=== PATIENT | female | born 1950 | race Caucasian/White ===

== ENCOUNTER 2022-01-17 05:40 | Inpatient (IN) | payer MEDICARE, BC ==
[2022-01-11 11:55] LABS: BASOPHILS # (AUTO) 0.1 X10'3 (0-0.2); BASOPHILS % (AUTO) 0.4 % (0-1); EOSINOPHILS % (AUTO) 0.2 % (0-6); LYMPHOCYTES # (AUTO) 2.6 X10'3 (1.1-4.8); LYMPHOCYTES % (AUTO) 17.9 % (21-51); MEAN CORPUSCULAR HEMOGLOBIN 32.7 PG (27.0-31.0); MEAN CORPUSCULAR HGB CONC 33.9 g/dL (33.0-36.5); MEAN CORPUSCULAR VOLUME 96.4 FL (78-98); MEAN PLATELET VOLUME 7.6 FL (7.4-10.4); MONOCYTES # (AUTO) 0.7 X10'3 (0-0.9); NEUTROPHILS % (AUTO) 76.5 % (42-75); PRE OP HEMATOCRIT 46.5 % (35.0-45.0); PRE OP HEMOGLOBIN 15.8 g/dL (12.0-16.0); PRE OP PLATELET COUNT 398 X10'3 (140-440); RED BLOOD COUNT 4.82 X10'6 (4.20-5.60); RED CELL DISTRIBUTION WIDTH 12.6 % (11.5-14.5)
[2022-01-11 12:23] LABS: ALBUMIN 4.2 G/DL (3.4-5.0); ALKALINE PHOSPHATASE 72 IU/L (46-116); BLOOD UREA NITROGEN 18 MG/DL (7-18); BUN/CREATININE RATIO 16.8 (6.6-38.0); CHLORIDE 103 MMOL/L (99-107); CREATININE 1.07 MG/DL (0.40-0.90); PRE OP ALT 27 U/L (30-65); PRE OP ANION GAP 13 (8-16); PRE OP AST 21 U/L (10-37); PRE OP BILIRUB, TOTAL 0.4 MG/DL (0.0-1.0); PRE OP GLUCOSE 116 MG/DL (70-104); PRE OP POTASSIUM 3.6 MMOL/L (3.4-5.1); PRE OP SODIUM 139 MMOL/L (135-145); TOTAL CARBON DIOXIDE 23.2 MMOL/L (24-32); TOTAL PROTEIN 8.4 G/DL (6.4-8.2); eGFR 51 ML/MIN
[2022-01-17] VITALS (21 sets, daily range): BP systolic 95–153; BP diastolic 42–102
[~2022-01-17] VITALS: Ht 162.6 cm; Wt 71.2 kg
[~2022-01-17 05:40] MED LIST: ATOR20TA66 PO; HYDR12.55 PO; LEVO112T52 PO; LISI40TA13 PO; RALO60TA13 PO; VENL225T3 PO; acetaminophen 325mg tablet PO ONE; ceFAZolin inj. 2,000 MG in dextrose 5%-water 100 ML IV ONE; celeCOXIB 100mg capsule PO ONE; famotidine 20mg tablet PO ONE; gabapentin 300mg capsule PO ONE; metoclopramide 5 mg/ml inj IV ONE; oxyCODONE SR 10mg (sust. release) tab -2 tabs (20mg) PO ONE; ringers solution, lacted 1,000 ML IV SCH; vancomycin/NS 1 GM in NS 250 ML IV ONE
--- NOTE | 2022-01-17 05:50 | NUR ---
PT PREPPED FOR SURGERY, LEFT HIP AREA PREPPED BY [employer]. BILATERAL LEGS ARE WARM AND DRY, NO BRUISES OR SKIN INJURIES. SENSATION IS INTACT BILATERALLY. PT IS ABLE TO MOVE AND WALK ON BOTH LEGS, BILATERAL PEDAL PULSES ARE PRESENT. PT DID USE THE HIBACLES SOAP TO SHOWER FOR 5 DAYS PRIOR TO SURGERY, WITH THE LAST TIME THIS MORNING. PT READ THE INFORMATION PACKET, STATES SHE HAS EXPERIENCE WITH SURGERIES BECAUSE OF HER PARENTS, SO SHE DID NOT WATCH THE VIDEO ONLINE. INCENTIVE SPIROMETRY TEACHING PERFORMED. PT WAS ABLE TO RETURN DEMONSTRATE. PT WAS NOT GIVEN ANY OINTMENT TO USE IN NOSE BY PHYSICIAN.
[2022-01-17] MEDS ORDERED: tranexamic acid inj. 1,000 MG in normal saline IV soln 100ML IV ONE (06:00)
[2022-01-17] MEDS ORDERED: naloxone 0.4 mg/ml inj IV PRN (06:40)
[2022-01-17] MEDS ORDERED: HYDROmorphone inj. 0.5 MG/0.5 ML DISP.SYRIN IV PRN (06:40)
[2022-01-17] MEDS ORDERED: bisacodyl 10mg suppository rectal RC PRN (06:40)
[2022-01-17] MEDS ORDERED: diphenhydrAMINE 25mg capsule PO PRN ×2 (06:40)
[2022-01-17] MEDS ORDERED: magnesium hydroxide 30ml (MOM) UD suspension PO PRN (06:40)
[2022-01-17] MEDS ORDERED: acetaminophen 325mg tablet PO PRN (06:40)
[2022-01-17] MEDS ORDERED: ondansetron/PF 4mg/2ml inj IV PRN ×2 (06:40→08:05)
[2022-01-17] MEDS ORDERED: HYDROmorphone 1 mg/ml syringe IV PRN (06:40)
[2022-01-17] MEDS ORDERED: epiNEPHrine 1 mg/ml inj ONE (06:43)
[2022-01-17] MEDS ORDERED: ketorolac trometh. 30mg/ml inj. ONE (06:43)
[2022-01-17] MEDS ORDERED: BUPIVAcaine/PF 5 mg/ml 10ml ONE (06:44)
[2022-01-17] MEDS ORDERED: cloNIDine hcl/PF 100mcg/ml inj ONE (06:44)
[2022-01-17] MEDS ORDERED: vancomycin 1,000mg inj ONE (06:44)
[2022-01-17] MEDS ORDERED: ROPIVAcaine 0.5% (5mg/ml) 30ml vial ONE (06:51)
[2022-01-17] MEDS ORDERED: MIDAZolam 1 MG/ML 5ML VIAL ONE (07:09)
[2022-01-17] MEDS ORDERED: fentaNYL/PF 50MCG/1 ML 2ML syringe ONE (07:09)
[2022-01-17] MEDS ORDERED: raloxifene 60mg tablet PO SCH (08:00)
[2022-01-17] MEDS ORDERED: morphine 2 MG/ML inj. syringe IV PRN (08:05)
[2022-01-17] MEDS ORDERED: HYDROmorphone/PF 0.2 MG/ML SYRINGE IV PRN ×2 (08:05)
[2022-01-17] MEDS ORDERED: ringers solution, lacted 1,000 ML IV SCH (08:05)
[2022-01-17] MEDS ORDERED: propofol inj 20 ML IV ONE (08:33)
[2022-01-17] MEDS ORDERED: ePHEDrine 50MG/ML INJ. ONE (08:33)
[2022-01-17] MEDS ORDERED: phenylephrine 10mg/ml inj. ONE (08:33)
[2022-01-17] MEDS ORDERED: diphenhydrAMINE 50 mg/ml inj ONE (08:33)
--- NOTE | 2022-01-17 08:45 | NUR ---
Received from OR via HOSPITAL BED, accompanied by Anesthesiologist DR VELEZ and report given by Anesthesiolgist. PT IS AWAKE, ALERT AND ANSWERING QUESTIONS APPROPRIATELY. PT PLACED ON BEDSIDE MONITOR, VSS. PT IS ON RA AND TOLERATING WELL WITH O2 SAT >96%. PT HAS 20G PIV TO LEFT HAND WITH LR INFUSING ORDERED. PT HAS MYA DRSG TO LEFT LATERAL HIP THAT IS TURNED ON, AND IS CDI. PT HAS LEG IMMOBILIZER TO LEFT LEG AND PT IS ABLE TO WIGGLE TOES ON BILAT FEET. STRONG PALPABLE DORSALIS PEDIS PULSES PRESENT. PT DENIES PAIN AT THIS TIME. WILL CONTINUE TO MONITOR.
--- NOTE | 2022-01-17 11:01 | NUR ---
Patient in room PAS IN 900. I have received report from Antonia in recovery and had the opportunity to ask questions and assume patient care.
--- NOTE | 2022-01-17 11:05 | NUR ---
PATIENT HAS MET ALL CRITERIA FOR TRANSFER TO THE ORTHO FLOOR. VSS. DRESSINGS INTACT. BED LOW, CALL LIGHT PRESENT AND 2 RAILS UP. RN PRESENT TO ACCEPT CARE OF PATIENT AND REPORT HAS BEEN CALLED TO CHARISSA SNELL. ALL QUESTIONS ANSWERED TO ACCEPTING RN.
[2022-01-17] MEDS: potassium cl 20mEq in 1/2 NS 1,000 ML IV SCH ×3 (11:28→22:40)
[2022-01-17] MEDS: atorvastatin 20mg tablet PO SCH (11:28)
[2022-01-17] MEDS: aspirin 325mg tablet PO SCH (11:29)
[2022-01-17] MEDS: HYDROcodone/acetaminophen 10/325mg tab PO PRN ×3 (11:29→20:30)
[2022-01-17] MEDS: ascorbic acid 500mg tablet PO SCH ×2 (11:29→20:29)
[2022-01-17] MEDS ORDERED: TRANEXAMIC ACID IV ONE (12:00)
[2022-01-17] MEDS ORDERED: NORMAL SALINE IV ONE (12:00)
--- NOTE | 2022-01-17 14:00 | NUR ---
Unable to complete post-op VS documentation. VS machine removed from pt/room during program. No communication with nurse.
[2022-01-17] MEDS ORDERED: vancomycin/NS 1 GM ADD-VANTAGE 250 ML IV SCH (16:00)
[2022-01-17] MEDS: ceFAZolin/D5W- 1GM premix 50 ML IV SCH (16:18)
--- NOTE | 2022-01-17 18:23 | NUR ---
Problems reprioritized. Patient report given, questions answered & plan of care reviewed with Marlen.
[2022-01-17] MEDS: gabapentin 300mg capsule PO SCH (20:29)
[2022-01-17] MEDS ORDERED: sennosides 8.6mg tablet PO SCH (21:00)
[2022-01-18] MEDS: ceFAZolin/D5W- 1GM premix 50 ML IV SCH (01:12)
[2022-01-18] MEDS: HYDROcodone/acetaminophen 10/325mg tab PO PRN ×2 (02:00→07:44)
[2022-01-18 06:00] VITALS: BP 130/81
--- NOTE | 2022-01-18 06:33 | NUR ---
Patient in room ORTHO 4013. I have received report from Marlen and had the opportunity to ask questions and assume patient care.
[2022-01-18] MEDS: potassium cl 20mEq in 1/2 NS 1,000 ML IV SCH (06:40)
--- NOTE | 2022-01-18 06:52 | NUR ---
Patient in room ORTHO 4013A. I have received report from Marlen SNELL and had the opportunity to ask questions and assume patient care.
[2022-01-18 07:16] LABS: BASOPHILS % (AUTO) 0.5 % (0-1); EOSINOPHILS # (AUTO) 0.1 X10'3 (0-0.9); EOSINOPHILS % (AUTO) 1.4 % (0-6); HEMATOCRIT 35.9 % (35.0-45.0); HEMOGLOBIN 12.3 g/dl (12.0-16.0); LYMPHOCYTES # (AUTO) 2.4 X10'3 (1.1-4.8); LYMPHOCYTES % (AUTO) 22.3 % (21-51); MEAN CORPUSCULAR HEMOGLOBIN 33.1 PG (27.0-31.0); MEAN CORPUSCULAR HGB CONC 34.4 g/dL (33.0-36.5); MEAN CORPUSCULAR VOLUME 96.2 FL (78-98); MEAN PLATELET VOLUME 7.9 FL (7.4-10.4); MONOCYTES % (AUTO) 9.2 % (2-12); NEUTROPHILS # (AUTO) 7.1 X10'3 (1.8-7.7); NEUTROPHILS % (AUTO) 66.6 % (42-75); PLATELET COUNT 233 X10'3 (140-440); RED BLOOD COUNT 3.73 X10'6 (4.20-5.60); RED CELL DISTRIBUTION WIDTH 12.6 % (11.5-14.5); WHITE BLOOD COUNT 10.6 X10'3 (4.5-11.0)
[2022-01-18 07:30] VITALS: BP_SYST 143
[2022-01-18] MEDS: atorvastatin 20mg tablet PO SCH (07:30)
[2022-01-18] MEDS: gabapentin 300mg capsule PO SCH (07:31)
[2022-01-18] MEDS: ascorbic acid 500mg tablet PO SCH (07:31)
[2022-01-18] MEDS: aspirin 325mg tablet PO SCH (07:34)
[2022-01-18 07:40] LABS: ANION GAP 8 (8-16); CHLORIDE 109 MMOL/L (99-107); SODIUM 142 MMOL/L (135-145); TOTAL CARBON DIOXIDE 25.2 MMOL/L (24-32)
--- NOTE | 2022-01-18 07:40 | NUR ---
Pt. 4013A IV discontinued, cannula intact. no complaints of pain or swelling. Pt tolerated well .
--- NOTE | 2022-01-18 07:42 | NUR ---
Pt s/p L hip arthroplasty this admit per EMR. Written High protein diet ed w/ RD contact info placed in pt chart Addendum: 01/18/22 at [address] Amended: Links added.
[2022-01-18] MEDS ORDERED: raloxifene 60mg tablet PO SCH (07:47)
[2022-01-18] MEDS ORDERED: multivitamins, therapeutics tablet PO SCH (08:00)
[2022-01-18] MEDS ORDERED: levoTHYROXINE 112mcg tablet PO SCH (08:00)
[2022-01-18] MEDS ORDERED: HYDROchlorothiazide 12.5mg capsule PO SCH (08:00)
[2022-01-18] MEDS ORDERED: venlafaxine XR 75mg capsule (Q24H) PO SCH (08:00)
[2022-01-18] MEDS ORDERED: lisinopril 20mg tablet PO SCH (08:00)
--- NOTE | 2022-01-18 10:25 | NUR ---
Pt. 1187B discharged home, wheeled down in wheel chair to personal vehicle accompanied spouse. DC instructions given, patient verbalized understanding an was able to ask questions. Left will all personal belongings.
[2022-01-18] MEDS ORDERED: celeCOXIB 100mg capsule PO SCH (20:00)
== END 2022-01-18 10:20 | disposition home or self-care (01) | DRG 470 ==
LOC: PAS 05:40 → PAS IN 06:41 → ORTHO 4S 11:10
PROVIDERS: ADMIT Orthopaedic Surgery; ATTEND Orthopaedic Surgery
PROC: 0SRB06Z Replacement of Left Hip Joint with Oxidized Zirconium on Polyethylene Synthetic Substitute, Open Approach (ICD-10-PCS; principal; 2022-01-17 07:13)
DX: M16.12 Unilateral primary osteoarthritis, left hip (principal); E11.9 Type 2 diabetes mellitus without complications; Z79.82 Long term (current) use of aspirin; Z79.890 Hormone replacement therapy; Z79.899 Other long term (current) drug therapy
CPT/HCPCS: 36415; 72170; 80051; 80053; 82948; 84443; 85025; 86885; 86900; 86901; 87081; 87811; 97110; 97116; 97161; A7000; C1776; G0378; J0171; J0690; J0735; J1200; J1885; J2250; J2270; J2370; J2704; J2765; J2795; J3010; J3370; J3480; J3490; J7060; J7120